=== PATIENT | female | born 1955 | race Caucasian/White ===

== ENCOUNTER → 2024-01-15 12:00 | Outpatient (REF) | payer OTHER, SELFPAY | LOC: RAD 12:00 | PROVIDERS: ATTENDING PHYSICIAN Specialist | DX: N20.0 Calculus of kidney (principal) | CPT/HCPCS: 74018 ==

== ENCOUNTER → 2024-03-23 13:35 | Outpatient (REF) | payer OTHER, SELFPAY | LOC: WDC 13:35 | PROVIDERS: ATTENDING PHYSICIAN Student in an Organized Health Care Education/Training Program | DX: S21.002A Unspecified open wound of left breast, initial encounter (principal); Z85.3 Personal history of malignant neoplasm of breast | CPT/HCPCS: 76642 ==

== ENCOUNTER 2024-05-20 16:19 | Outpatient (RCR) | payer OTHER, SELFPAY | END 2024-05-20 23:59 | disposition home or self-care (01) | LOC: RPT 16:19 | PROVIDERS: ATTENDING PHYSICIAN Specialist; FAMILY PHYSICIAN Student in an Organized Health Care Education/Training Program | DX: N39.3 Stress incontinence (female) (male) (principal); K59.00 Constipation, unspecified; Z73.6 Limitation of activities due to disability | CPT/HCPCS: 97110; 97162; 97530 ==

== ENCOUNTER 2024-06-23 09:13 | Outpatient (RCR) | payer OTHER, SELFPAY | END 2024-06-23 23:59 | disposition home or self-care (01) | LOC: RPT 09:13 | PROVIDERS: ATTENDING PHYSICIAN Specialist; FAMILY PHYSICIAN Student in an Organized Health Care Education/Training Program | DX: N39.3 Stress incontinence (female) (male) (principal); K59.00 Constipation, unspecified; Z73.6 Limitation of activities due to disability | CPT/HCPCS: 97110 ==

== ENCOUNTER 2024-07-09 10:07 | Outpatient (RCR) | payer OTHER, SELFPAY | END 2024-07-09 23:59 | disposition home or self-care (01) | LOC: RPT 10:07 | PROVIDERS: ATTENDING PHYSICIAN Specialist; FAMILY PHYSICIAN Student in an Organized Health Care Education/Training Program | DX: N39.3 Stress incontinence (female) (male) (principal); K59.00 Constipation, unspecified; Z73.6 Limitation of activities due to disability | CPT/HCPCS: 97110; 97530 ==

== ENCOUNTER 2024-08-18 07:24 | Outpatient (RCR) | payer OTHER, SELFPAY | END 2024-08-18 23:59 | disposition home or self-care (01) | LOC: RPT 07:24 | PROVIDERS: ATTENDING PHYSICIAN Specialist; FAMILY PHYSICIAN Student in an Organized Health Care Education/Training Program | DX: N39.3 Stress incontinence (female) (male) (principal); K59.00 Constipation, unspecified; Z73.6 Limitation of activities due to disability | CPT/HCPCS: 97110 ==

== ENCOUNTER 2024-09-02 11:56 | Outpatient (RCR) | payer OTHER, SELFPAY | END 2024-09-02 23:59 | disposition home or self-care (01) | LOC: RPT 11:56 | PROVIDERS: ATTENDING PHYSICIAN Specialist; FAMILY PHYSICIAN Student in an Organized Health Care Education/Training Program | DX: N39.3 Stress incontinence (female) (male) (principal); K59.00 Constipation, unspecified; Z73.6 Limitation of activities due to disability | CPT/HCPCS: 97110 ==

== ENCOUNTER 2024-09-24 10:07 | Outpatient (RCR) | payer OTHER, SELFPAY | END 2024-09-24 23:59 | disposition home or self-care (01) | LOC: RPT 10:07 | PROVIDERS: ATTENDING PHYSICIAN Specialist; FAMILY PHYSICIAN Student in an Organized Health Care Education/Training Program | DX: N39.3 Stress incontinence (female) (male) (principal); K59.00 Constipation, unspecified; Z73.6 Limitation of activities due to disability | CPT/HCPCS: 97110 ==

== ENCOUNTER → 2025-01-19 17:00 | Outpatient (REF) | payer OTHER, SELFPAY | LOC: HWRAD 17:00 | PROVIDERS: ATTENDING PHYSICIAN Specialist; FAMILY PHYSICIAN Student in an Organized Health Care Education/Training Program | DX: N20.0 Calculus of kidney (principal) | CPT/HCPCS: 74018 ==

== ENCOUNTER 2025-05-23 11:28 | Outpatient (RCR) | payer OTHER, SELFPAY | END 2025-05-23 23:59 | disposition home or self-care (01) | LOC: RPT 11:28 | PROVIDERS: ATTENDING PHYSICIAN Student in an Organized Health Care Education/Training Program | DX: K59.04 Chronic idiopathic constipation (principal); Z73.6 Limitation of activities due to disability | CPT/HCPCS: 97112; 97162; 97530 ==

== ENCOUNTER 2025-05-31 11:31 | Outpatient (RCR) | payer OTHER, SELFPAY | END 2025-05-31 23:59 | disposition home or self-care (01) | LOC: RPT 11:31 | PROVIDERS: ATTENDING PHYSICIAN Student in an Organized Health Care Education/Training Program | DX: K59.04 Chronic idiopathic constipation (principal); Z73.6 Limitation of activities due to disability; R32 Unspecified urinary incontinence | CPT/HCPCS: 97110; 97530 ==

== ENCOUNTER 2025-06-01 08:06 | Emergency (ER) | payer OTHER, SELFPAY ==
[2025-06-01 08:08] VITALS: BP 130/91
--- NOTE | 2025-06-01 08:26 | ED.GENMED ---
History of Present Illness
General
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
Source: patient
Exam Limitations: none
Time Seen by Provider: 06/01/25 08:17
History of Present Illness
History of Present Illness:
70yoF with a history of splenic artery aneurysm on a statin and remote history of breast cancer presenting for evaluation of vaginal pain. Symptoms began at the beginning of the month. She reports vaginal discomfort after urinating and the
constant urge to pee. She started to notice a 'pink tinge' after wiping starting yesterday. Additionally, she saw a lump in her vagina that she was concerned may be a prolapse. She has a history of kidney stones but states this feels different as
she is not having any flank pain. She denies any fevers, vomiting, abdominal pain, vaginal discharge. Of note, patient is currently in physical therapy for a 'tortuous colon' and constipation. She is and in a monogamous relationship. She
denies any new sexual partners or concern for STDs.
Phy Exam
General Physical Exam
General Presentation: well appearing and no apparent distress
General Skin: warm and dry
General Habitus: normal
General Mental: alert
ENT Exam
ENT Exam: normocephalic
Pulmonary Exam
Pulmonary Exam: no respiratory distress
Gastrointestinal Exam
Gastrointestinal Exam: soft, non distended and other (Mild suprapubic tenderness)
Genitourinary Exam Female
Exam Female: no bleeding and other (External genitalia appears normal. Small red lesion to the L labia minor. There appears to be a small bulge to the anterior vaginal wall. No vaginal bleeding or discharge noted on speculum exam.)
Vaginal Bleeding: none
Neurological Exam
Neurological Exam: alert
Jaison Coma Scale
Eye Opening: Spontaneous
Verbal Response: Oriented
Motor Response: Obeys Commands
GCS Total Score: 15
Skin Exam
Skin Exam: normal color and warm/dry
Psychiatric Exam
Psychiatric Exam: normal mood/affect
Course
Orders/Labs/Results
Orders:
Orders
06/01/25 08:31
Urinalysis Reflex To Culture Urgent
Date Specimen was Collected: 06/01/25
Time Specimen was Collected: 08:29
Urine Microscopic Reflex Cult Urgent
Urine Culture Urgent
SUNI Source: U
Specimen Description:
Date Specimen was Collected: 06/01/25
Time Specimen was Collected: 08:29
06/01/25 08:47
Pelvis & Transvaginal US [US Pelvis W Transvag Combined] Urgent
Comment:
Reason For Exam: pelvic pain
06/01/25 09:05
Cefdinir [Omnicef] 300 mg PO NOW STA
Abnormal Lab Results
06/01/25
08:31
Ur Occult Blood Reflex 4+ A
(Negative)
Urine Nitrite (Reflex) Positive A
(Negative)
Leukocyte Esterase Rfl 3+ A
(Negative)
Urine RBC >100 A /HPF
(0-2)
Urine WBC (Reflex) >100 A /HPF
(0-5)
Urine Bacteria (Reflex) Many A
(Negative)
Urine Albumin (Reflex) 4+ A
(Neg - Trace)
Vital Signs
Initial and Last Documented VS:
Initial Vital Signs
Temp Pulse Resp BP Pulse Ox
98.5 F 72 18 130/91 98
06/01/25 08:08 06/01/25 08:08 06/01/25 08:08 06/01/25 08:08 06/01/25 08:08
Last Documented Vital Signs
Temp Pulse Resp BP Pulse Ox
98.5 F 72 18 137/72 99
06/01/25 08:08 06/01/25 08:08 06/01/25 08:08 06/01/25 09:00 06/01/25 09:30
MDM/Problems Addressed
Differential Diagnosis Includes:
70yoF here with vaginal discomfort after urinating x 1 week and urinary urgency. Also started to notice a pink tinge after wiping x 1 day. VSS. She is well appearing in no distress. There appears to be a small bulge to the anterior vaginal wall on
exam. No vaginal bleeding noted. Differential diagnosis includes: UTI, cystocele, atrophic vaginitis, doubt kidney stone
Initial ED plan: Check UA and pelvic ultrasound.
*Pulse Oximetry
SaO2: 98
Oxygen Mode of Delivery: Room air
Patient hypoxic: no (98%)
*Critical Care Note
Total Time (30-74mins, 75-104mins- exclusive of procedures): Not Applicable
Update Note
Update Note:
UA is nitrite positive with >100 WBCs consistent with infection. Uterus and ovaries appear normal on US. Imaging shows 'There is a convex linear echogenic foci within the urinary bladder which demonstrate no internal vascularity. Findings may
related to cystitis or possible chronic intravesicular hematoma. Malignancy is considered less likely.' Findings discussed with patient and she was provided a copy of the radiology report. Suspect her symptoms are related to a UTI. She was started
on a course of cefdinir and prescription also given for pyridium. She was advised to f/u with her urologist and OBGYN. ED return precautions reviewed. Patient discharged in stable condition.
ED Attending Note
-
Portions of this chart may have been created with voice recognition software.� Occasional wrong word or��sound alike� substitutions may have occurred due to the inherent limitations of voice recognition software.
Discharge Plan
Departure
Patient Disposition: Home (Routine Discharge)
Date of Disposition: 06/01/25
Time of Disposition: 12:14
Patient with high blood pressure during this ER visit?: No
Discharge Problem:
Urinary tract infection
Instructions: Urinary Tract Infection, Adult (DC)
Prescriptions:
New
cefdinir 300 mg capsule
300 mg PO BID Qty: 13 0RF
phenazopyridine [Pyridium] 200 mg tablet
200 mg PO TID PRN (Reason: bladder pain) Qty: 6 0RF
No Action
pafdcqo-[id number]-rqqxvwiq [Vanquish] 1 EACH tablet
1 PO PRN PRN (Reason: headache)
dihydroergotamine [Migranal] 1 ML spray,non-aerosol
1 spray SPRAY PRN PRN (Reason: migraines)
Femara
2.5 mg PO DAILY
Petadolex
50 mg PO BID
Patient Comments:
takes 50 mg in the AM; 100 mg in the PM
Referrals:
Basia Dickinson MD [Family Provider, Internal Medicine]
Activity Restrictions/Additional Instructions:
Take antibiotics as prescribed. You may take Pyridium as needed for bladder pain. Drink plenty of fluids and stay hydrated.
Please follow-up with your urologist for the abnormal finding on today's ultrasound. You should also see your department mgr. Return to the ER with any worsening symptoms including flank pain, vomiting, or fevers.
Interventions
Interventions:
*Risk Screen - Suicide Last Done: 06/01/25 08:09
*General Assessment Last Done: 06/01/25 08:33
*Neglect/Abuse Screening Last Done: 06/01/25 08:34
*ED- Fall Risk Assessment Last Done: 06/01/25 08:33
*ED COVID-19 Vaccine History Last Done: 06/01/25 08:33
*Nursing Disposition Last Done: 06/01/25 12:38
ED-Female Genitourinary Assessment Last Done: 06/01/25 08:47
Discharge Date and Time
Discharge Date/Time: 06/01/25 12:38
Print Language: FRISIAN
[2025-06-01 08:33] VITALS: BMI 27.3
[2025-06-01 08:37] VITALS: BP 122/63
[2025-06-01 08:42] LABS: Urine Character Cloudy (Clear)
[2025-06-01 09:00] VITALS: BP 137/72
[2025-06-01] MEDS: OMNICEF 300 MG PO (09:15)
[2025-06-01 09:33] LABS: Urine Squamous Cell 0-2 /LPF (Few)
[2025-06-01 09:34] LABS: Urine Red Blood Cell >100 /HPF (0-2); Urine White Cell >100 /HPF (0-5)
== END 2025-06-01 12:38 | disposition home or self-care (01) ==
LOC: EMR 08:06
PROVIDERS: Physician Assistant; EMERGENCY PHYSICIAN Emergency Medicine; FAMILY PHYSICIAN Student in an Organized Health Care Education/Training Program
DX: N39.0 Urinary tract infection, site not specified (principal); Z85.3 Personal history of malignant neoplasm of breast; Z87.442 Personal history of urinary calculi
CPT/HCPCS: 99284; 76830; 76856; 81003; 81015; 87086

== ENCOUNTER 2025-07-20 09:06 | Outpatient (RCR) | payer OTHER, SELFPAY | END 2025-07-20 23:59 | disposition home or self-care (01) | LOC: RPT 09:06 | PROVIDERS: ATTENDING PHYSICIAN Student in an Organized Health Care Education/Training Program | DX: K59.04 Chronic idiopathic constipation (principal); Z73.6 Limitation of activities due to disability; R32 Unspecified urinary incontinence | CPT/HCPCS: 97110; 97112; 97140; 97530 ==

== ENCOUNTER 2025-08-22 14:11 | Outpatient (RCR) | payer OTHER, SELFPAY | END 2025-08-22 23:59 | disposition home or self-care (01) | LOC: RPT 14:11 | PROVIDERS: ATTENDING PHYSICIAN Student in an Organized Health Care Education/Training Program | DX: K59.04 Chronic idiopathic constipation (principal); Z73.6 Limitation of activities due to disability; R32 Unspecified urinary incontinence | CPT/HCPCS: 97110; 97140; 97530 ==

== ENCOUNTER 2025-09-14 07:05 | Outpatient (RCR) | payer OTHER, SELFPAY | END 2025-09-14 23:59 | disposition home or self-care (01) | LOC: RPT 07:05 | PROVIDERS: ATTENDING PHYSICIAN Student in an Organized Health Care Education/Training Program | DX: K59.04 Chronic idiopathic constipation (principal); Z73.6 Limitation of activities due to disability; R32 Unspecified urinary incontinence | CPT/HCPCS: 97110; 97140; 97530 ==

== ENCOUNTER → 2025-09-26 12:31 | Outpatient (REF) | payer OTHER, SELFPAY | LOC: RCS 12:31 | PROVIDERS: ATTENDING PHYSICIAN Student in an Organized Health Care Education/Training Program | DX: R07.9 Chest pain, unspecified (principal) | CPT/HCPCS: 93017 ==

== ENCOUNTER 2025-10-03 14:05 | Outpatient (RCR) | payer OTHER, SELFPAY | END 2025-10-03 23:59 | disposition home or self-care (01) | LOC: RPT 14:05 | PROVIDERS: ATTENDING PHYSICIAN Student in an Organized Health Care Education/Training Program | DX: K59.04 Chronic idiopathic constipation (principal); Z73.6 Limitation of activities due to disability; R32 Unspecified urinary incontinence | CPT/HCPCS: 97110; 97140 ==

== ENCOUNTER → 2025-10-05 13:07 | Outpatient (REF) | payer OTHER, SELFPAY | LOC: RCS 13:07 | PROVIDERS: ATTENDING PHYSICIAN Internal Medicine Cardiovascular Disease; FAMILY PHYSICIAN Student in an Organized Health Care Education/Training Program | DX: R94.39 Abnormal result of other cardiovascular function study (principal); R07.9 Chest pain, unspecified | CPT/HCPCS: 93017; 93350 ==

== ENCOUNTER 2025-10-25 12:44 | Outpatient (RCR) | payer OTHER, SELFPAY | END 2025-10-26 05:56 | disposition home or self-care (01) | LOC: RPT 12:44 | PROVIDERS: ATTENDING PHYSICIAN Student in an Organized Health Care Education/Training Program | DX: K59.04 Chronic idiopathic constipation (principal); Z73.6 Limitation of activities due to disability; R32 Unspecified urinary incontinence | CPT/HCPCS: 97110; 97140 ==